=== PATIENT | female | born 1975 | race Caucasian/White ===

== ENCOUNTER 2017-08-06 03:13 | Emergency (ER) | payer BC ==
[2017-08-06] MEDS ORDERED: methylPREDNISolone Sodium Succinate 125 MG/2 ML SDV IM ONE (03:40)
[2017-08-06] MEDS ORDERED: Albuterol/Ipratropium 3.0-0.5 MG/3 ML Neb Soln NEB ONE (03:41)
--- NOTE | 2017-08-06 03:42 | EDM.PDOC ---
ED HPI GENERAL MEDICAL PROBLEM - General Chief Complaint: Respiratory Problem Stated Complaint: HARD TIME BREATHING Time Seen by Provider: 08/06/17 03:41 Source of Information: Reports: Patient - History of Present Illness INITIAL COMMENTS - FREE TEXT/NARRATIVE: HISTORY AND PHYSICAL: History of present illness: [ Patient with history of asthma presents with coughing for 3 weeks increasing in severity. She has been on Tamiflu and is followed with primary was recommended over-the- counter symptomatic therapies It seems that she is moved here from [place] into a trailer home which is [address] for a couple of years and has been evaristo she has cleaned this home however the landlord is not allowed them to change the filters in the furnace and has not performed this apparently. Also the ducts appear to be full of dust and likely need to be cleaned No fever nausea vomiting chills sweats no chest pain headache dizziness palpitation no bowel or urine symptoms ] Review of systems: As per history of present illness and below otherwise all systems reviewed and negative. Past medical history: As per history of present illness and as reviewed below otherwise noncontributory. Surgical history: As per history of present illness and as reviewed below otherwise noncontributory. Social history: No reported history of drug or alcohol abuse. Family history: As per history of present illness and as reviewed below otherwise noncontributory. Physical exam: HEENT: Atraumatic, normocephalic, pupils reactive, negative for conjunctival pallor or scleral icterus, mucous membranes moist, throat clear, neck supple, nontender, trachea midline. Lungs: Clear to auscultation, breath sounds equal bilaterally, chest nontender. Heart: S1S2, regular, negative for clicks, rubs, or JVD. Abdomen: Soft, nondistended, nontender. Negative for masses or hepatosplenomegaly. Negative for costovertebral tenderness. Pelvis: Stable nontender. Genitourinary: Deferred. Rectal: Deferred. Extremities: Atraumatic, negative for cords or calf pain. Neurovascular unremarkable. Neuro: Awake, alert, oriented. Cranial nerves II through XII unremarkable. Cerebellum unremarkable. Motor and sensory unremarkable throughout. Exam nonfocal. Diagnostics: [Chest 2 views ] Therapeutics: []Z-Alexandro 250 mg no refill Albuterol neb one box, patient has compressor Medrol Dosepak HFA Impression: [Asthma exacerbation Persistent cough Recent flu exposure] Definitive disposition and diagnosis as appropriate pending reevaluation and review of above. upper back Pain Score (Numeric/FACES): 8 - Related Data Allergies Allergy/AdvReac Type Severity Reaction Status Date / Time No Known Allergies Allergy Verified 08/06/17 03:27 Home Meds: Home Meds Carvedilol [Coreg] 12.5 mg PO DAILY 08/06/17 [History] Celecoxib 100 mg PO DAILY 08/06/17 [History] Hydrochlorothiazide 0 mg PO DAILY 08/06/17 [History] Montelukast [Singulair] 10 mg PO DAILY 08/06/17 [History] Pantoprazole [Pantoprazole Sodium] 0 mg PO DAILY 08/06/17 [History] Sertraline [Zoloft] 0 mg PO DAILY 08/06/17 [History] tiZANidine [Zanaflex] 2 mg PO DAILY PRN 08/06/17 [History] Past Medical History HEENT History: Reports: None Cardiovascular History: Reports: Hypertension Respiratory History: Reports: Asthma Other Respiratory History: onn Albuterol inhaler PRN Gastrointestinal History: Reports: GERD Genitourinary History: Reports: None 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 Psychiatric History: Pt on Zoloft "to help me focus" - Infectious Disease History Infectious Disease History: Reports: Chicken Pox, Measles - Past Surgical History HEENT Surgical History: Reports: Adenoidectomy, Tonsillectomy Cardiovascular Surgical History: Reports: None Respiratory Surgical History: Reports: None GI Surgical History: Reports: Cholecystectomy Female Surgical History: Reports: Section Social & Family History - Family History Family Medical History: Noncontributory - Tobacco Use Smoking Status *Q: Never Smoker Second Hand Smoke Exposure: Yes - Caffeine Use Caffeine Use: Reports: Soda - Recreational Drug Use Recreational Drug Use: No ED ROS GENERAL - Review of Systems Review Of Systems: ROS reveals no pertinent complaints other than HPI. ED EXAM, GENERAL - Physical Exam Exam: See Below Course - Vital Signs Last Recorded V/S: Last Vital Signs Temp 98.3 F 08/06/17 04:29 Pulse 72 08/06/17 04:29 Resp 18 08/06/17 04:29 BP 125/82 08/06/17 04:29 Pulse Ox 96 08/06/17 04:29 - Orders/Labs/Meds Orders: Active Orders 24 hr Category Date Time Status RT Aerosol Therapy [RC] ASDIRECTED Care 08/06/17 03:41 Active Chest 2V [CR] Stat Exams 08/06/17 03:32 Taken Meds: Medications Discontinued Medications Generic Name Dose Route Start Last Admin Trade Name Eliel PRN Reason Stop Dose Admin Albuterol/Ipratropium 3 ml 08/06/17 03:41 08/06/17 03:55 Duoneb 3.0-0.5 Mg/3 Ml NEB 08/06/17 03:42 3 ml ONETIME ONE Administration Methylprednisolone Sodium Succinate 125 mg 08/06/17 03:40 08/06/17 04:02 Solu-Medrol IM 08/06/17 03:41 125 mg ONETIME ONE Administration Departure - Departure Time of Disposition: 04:41 Disposition: Home, Self-Care 01 Condition: Good Clinical Impression: Asthma, Bronchitis - Discharge Information Referrals: PCP,None [Primary Care Provider] - Forms: ED Department Discharge Additional Instructions: The following information is given to patients seen in the emergency department who are being discharged to home. This information is to outline your options for follow-up care. We provide all patients seen in our emergency department with a follow-up referral. The need for follow-up, as well as the timing and circumstances, are variable depending upon the specifics of your emergency department visit. If you don't have a primary care physician on staff, we will provide you with a referral. We always advise you to contact your personal physician following an emergency department visit to inform them of the circumstance of the visit and for follow-up with them and/or the need for any referrals to a consulting specialist. The emergency department will also refer you to a specialist when appropriate. This referral assures that you have the opportunity for follow-up care with a specialist. All of these measure are taken in an effort to provide you with optimal care, which includes your follow-up. Under all circumstances we always encourage you to contact your private physician who remains a resource for coordinating your care. When calling for follow-up care, please make the office aware that this follow-up is from your recent emergency room visit. If for any reason you are refused follow-up, please contact the [facility] emergency department at and asked to speak to the emergency department charge nurse. - My Orders Last 24 Hours: My Active Orders 08/06/17 03:32 Chest 2V [CR] Stat 08/06/17 03:41 RT Aerosol Therapy [RC] ASDIRECTED - Assessment/Plan Last 24 Hours: My Active Orders 08/06/17 03:32 Chest 2V [CR] Stat 08/06/17 03:41 RT Aerosol Therapy [RC] ASDIRECTED
--- NOTE | 2017-08-07 15:48 | CR ---
EXAM DATE: 08/06/17 PATIENT'S AGE: 42 Patient: MICKY CHOI Facility: [place], [place] Site . Site : [id number] Study: XRay Chest [id number]/4/2018 4:14:42 AM Ordering Physician: Doctor Black Final Report: INDICATION: Shortness of breath, chest pain TECHNIQUE: Chest 2 views. COMPARISON: None FINDINGS: Cardiovascular and mediastinum: Heart size and vasculature are normal in caliber and appearance. Mediastinum is within normal limits. Lungs and pleural spaces: Lungs are clear. No sign of infiltrate or mass. No sign of pleural effusion. No pneumothorax. Bones and soft tissues: No significant findings. IMPRESSION: No sign of acute disease. Dictated by Claudia Fowler MD @ Aug 06 2017 4:15AM (Electronic Signature) Report Signed by Proxy. [email or web address]
== END 2017-08-06 05:00 | disposition home or self-care (01) ==
LOC: MW.ED 03:13
DX: J45.901 Unspecified asthma with (acute) exacerbation (principal); I10 Essential (primary) hypertension; Z79.899 Other long term (current) drug therapy
CPT/HCPCS: 71046; 94640; 96372; 99283; J2930